=== PATIENT | female | born 1995 | race Hispanic/Latino ===

== ENCOUNTER 2018-07-12 20:55 | Emergency (ER) | payer BC ==
[2018-07-12 21:07] VITALS: BP 107/67; PULSE 68; RESP 16; TEMP 97.7; O2SAT 100
--- NOTE | 2018-07-12 21:29 | ED PDOC ---
HPI: Skin/Bite Injury Time Seen by Provider: 07/12/18 21:09 Chief Complaint (Nursing): Abnormal Skin Integrity History Per: Patient Additional Complaint(s): Pt. states this morning she woke up with a pruritic rash on the R side of her face. Pt. states she fell with the R side of her face on a sweater that she recent handwashed with a new soap. States rash has been coming and going despite not taking any medications but does admit to apply ice over the R side of the face with some relief. Denies fever, recent illness, numbness, tingling, pain, SOB, chest pain. Past Medical History Reviewed: Historical Data, Nursing Documentation, Vital Signs Vital Signs: Last Vital Signs Temp 97.7 F 07/12/18 21:04 Pulse 68 07/12/18 21:04 Resp 16 07/12/18 21:04 BP 107/67 07/12/18 21:04 Pulse Ox 100 07/12/18 21:04 - Family History Family History: States: No Known Family Hx - Home Medications Home Medications: Ambulatory Orders Medication Instructions Recorded predniSONE [Prednisone] 2 tab PO DAILY #8 tab 07/12/18 - Allergies Allergies/Adverse Reactions: Allergies Allergy/AdvReac Type Severity Reaction Status Date / Time No Known Allergies Allergy Verified 07/12/18 21:03 Review of Systems ROS Statement: Except As Marked, All Systems Reviewed And Found Negative Skin: Positive for: Rash Physical Exam - Physical Exam Appears: Positive for: Well, Non-toxic, No Acute Distress Skin: Positive for: Normal Color, Warm, Rash (R side of face with scattered erythematous papules crossing multiple dermatomes without vesicles, pustules, or surrounding erythema) Eye Exam: Positive for: Normal appearance ENT: Positive for: Normal ENT Inspection Respiratory: Positive for: Normal Breath Sounds. Negative for: Stridor, Respiratory Distress Neurologic/Psych: Positive for: Alert, Oriented (x3) - ECG O2 Sat by Pulse Oximetry: 100 - Progress ED Course And Treament: Informed that rash is likely due to an allergen. Pt. is to f/u with a service sprinkler helper but is to return to ED if rash worsens, fever develops, SOB develops. Discussed side effects of topical steroids on face and pt. agrees PO steroids. Disposition - Clinical Impression Clinical Impression: Contact dermatitis - Patient ED Disposition Is Patient to be Admitted: No - Disposition Referrals: [facility] [place] [Outside] Disposition: Routine/Home Disposition Time: 21:26 Condition: STABLE Additional Instructions: FOLLOW UP WITH [facility] FOR FURTHER EVALUATION RETURN TO ED IMMEDIATELY IF SYMPTOMS WORSEN ELISABETH HAN, thank you for letting us take care of you today. Your provider was Fran Alejo III, DO and you were treated for SKIN IRRITATION. The emergency medical care you received today was directed at your acute symptoms. If you were prescribed any medication, please fill it and take as directed. It may take several days for your symptoms to resolve. Return to the Emergency Department if your symptoms worsen, do not improve, or if you have any other problems. Please contact your doctor or call one of the physicians/clinics you have been referred to that are listed on the Patient Visit Information form that is included in your discharge packet. Bring any paperwork you were given at discharge with you along with any medications you are taking to your follow up visit. Our treatment cannot replace ongoing medical care by a primary care provider outside of the emergency department. Thank you for allowing the [facility] team to be part of your care today. If you had an X-Ray or CT scan: A Radiologist will review the ED reading if any change in treatment is needed we will contact you. If you had a blood, urine, or wound culture: It will take several days for the results, if any change in treatment is needed we will contact you. If you had an STI test: It will take 48 hours for the results. Please call after 1 week if you have not heard back. Prescriptions: predniSONE [Prednisone] 2 tab PO DAILY #8 tab Instructions: Contact Dermatitis (DC) Forms: [employer] (Ind[place]ian)
== END 2018-07-12 21:41 | disposition home or self-care (01) ==
LOC: H.ER 20:55
DX: L25.9 Unspecified contact dermatitis, unspecified cause (principal)